=== PATIENT | male | born 1965 | race African-American/Black ===

== ENCOUNTER → 2016-05-15 | Outpatient (CLI) | payer BC, OTHER ==
[2016-05-15 15:38] LABS: Basophils % (A) 0 %; CH 29.7; CHCM 32.3; Eosinophils # (A) 0.2 k/uL (0-0.7); Eosinophils % (A) 3 %; HCT 43.8 % (39.0-53.0); HDW 2.47; HGB 13.9 gm/dL (13.0-17.5); Luc % (Auto) 3; Lymphocytes # (A) 1.7 k/uL (1.0-4.8); Lymphocytes % (A) 25 %; MCH 29.4 pg (25.0-35.0); MCHC 31.8 g/dL (31.0-37.0); MCV 92.6 fL (80.0-100.0); Monocytes # (A) 0.3 k/uL (0-1.0); Monocytes % (A) 5 %; Neutrophils # (A) 4.6 k/uL (1.3-7.7); Neutrophils % (A) 65 %; RBC 4.73 m/uL (4.30-5.90); RDW 13.5 % (11.5-15.5); WBC 7.1 k/uL (3.8-10.6); WBC (Perox) 7.47
[2016-05-15 15:51] LABS: ALT 40 U/L (21-72); AST 25 U/L (17-59); Alkaline Phosphatase 49 U/L (38-126); Anion Gap 9 mmol/L; Blood Urea Nitrogen 12 mg/dL (9-20); Calcium 9.6 mg/dL (8.4-10.2); Carbon Dioxide 25 mmol/L (22-30); Chloride 110 mmol/L (98-107); Cholesterol 186 mg/dL (<200); Glucose 94 mg/dL (74-99); HDL Cholesterol 55 mg/dL (40-60); Non-African American GFR(MDRD) >60 (>60 ml/min/1.73 sqM); Potassium 4.5 mmol/L (3.5-5.1); Sodium 144 mmol/L (137-145); Total Bilirubin 0.4 mg/dL (0.2-1.3); Total Protein 6.9 g/dL (6.3-8.2); Triglycerides 102 mg/dL (<150)
[2016-05-15 20:50] LABS: Hemoglobin A1C 5.7 % (4.2-6.1)
== END | disposition home or self-care (01) ==
LOC: LABWHC1 15:22
PROVIDERS: ATTEND Family Medicine
DX: I10 Essential (primary) hypertension (principal); I63.40 Cerebral infarction due to embolism of unspecified cerebral artery
CPT/HCPCS: 36415; 80053; 80061; 83036; 84439; 84443; 85025

== ENCOUNTER → 2016-05-15 | Outpatient (CLI) | payer BC, OTHER ==
--- NOTE | 2016-05-16 08:15 | MR ---
EXAMINATION TYPE: MR lumbar spine wo con DATE OF EXAM: 05/15/2016 3:17 PM COMPARISON: Prior MRI lumbar spine February 21, 2014 HISTORY: Lumbago per order. Left-sided low back pain for 15 years going down bilateral thighs per pat ient. TECHNIQUE: Multiplanar, multisequence imaging of the lumbar spine is performed without IV contrast. FINDINGS: Sagittal images of the lumbar spine show vertebral body heights and alignment to appear sat isfactory. There is redemonstration of multilevel disc desiccation and disc space narrowing with rela tive sparing of L2-L3 and L5-S1 levels. Most pronounced disc space narrowing is redemonstrated at L1- L2 and L4-L5 levels. Most prominent posterior disc herniations are redemonstrated at these levels on sagittal images but felt stable. The conus medullaris is normal in position and signal ending at mid L1 vertebral body level. The bone marrow signal intensity is overall heterogeneous with some endpla te changes most pronounced anteriorly L1-L2 and L4-L5 levels. There is mild to moderate multilevel an terior spurring redemonstrated. Axial images show the T12-L1 level to remain within normal limits. Axial images at the L1-L2 level redemonstrate mild to moderate broad disc bulge effacing the anterior thecal sac. There is stable mild bilateral anterior inferior neural foraminal narrowing at this leve l identified. Axial images at L2-L3 level show mild facet arthropathy bilaterally otherwise are within normal limit s and stable from prior. Axial images at the L3-L4 level show mild to moderate facet degenerative changes and ligamentum flavu m hypertrophy effacing the posterior lateral thecal sac. There is central disc protrusion effacing th e anterior thecal sac. There is increased signal posteriorly consistent with annular tear. There is m ild bilateral anterior inferior neural foraminal narrowing seen. No significant change from prior stephanie dy is noted. Axial images at the L4-L5 level show mild to moderate facet degenerative changes bilaterally. There i s broad-based left paracentral disc protrusion redemonstrated on axial image 10 effacing the anterior thecal sac. Increased signal posterior likely consistent with annular tear is noted. There is modera te right greater than left neural foraminal narrowing redemonstrated at this level. No significant ch edith from prior study is seen. Axial images at L5-S1 level show mild facet degenerative changes bilaterally. There is broad-based le ft paracentral disc protrusion redemonstrated on axial image 4. Increased signal posteriorly consiste nt with annular tear is redemonstrated. Bilateral neural foramina remain patent. Symmetric prominent iliopsoas muscle bulk remains present. IMPRESSION: Multilevel degenerative changes in the lumbar spine as detailed above, findings are felt most pronounced at L4-L5 level, no significant progression from prior MRI is felt present.
== END | disposition home or self-care (01) ==
LOC: RADMRIMAIN 14:48
PROVIDERS: ATTEND Psychiatry & Neurology Neurology
DX: M47.26 Other spondylosis with radiculopathy, lumbar region (principal)
CPT/HCPCS: 72148

== ENCOUNTER → 2016-07-23 | Outpatient (CLI) | payer OTHER ==
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
== END | disposition home or self-care (01) ==
LOC: SLEEP 13:26
PROVIDERS: ATTEND Internal Medicine Critical Care Medicine
DX: G47.10 Hypersomnia, unspecified (principal); I10 Essential (primary) hypertension; M54.9 Dorsalgia, unspecified; G89.29 Other chronic pain; Z87.891 Personal history of nicotine dependence; Z86.73 Personal history of transient ischemic attack (TIA), and cerebral infarction without residual deficits
CPT/HCPCS: 99203; 99211

== ENCOUNTER → 2016-10-08 | Outpatient (CLI) | payer OTHER ==
--- NOTE | 2016-10-08 21:39 | PN ---
This is a 51-year-old -[place] male patient diagnosed having severe JADA with an AHI of 73.5. He also is known to have CVA, bronchial asthma, chronic back pain and hypertension. He had a successful CPAP titration, during which he was titrated to a CPAP pressure of 12 cm of water. The patient claims that he has been using his CPAP every night; however, his compliance data do not reflect his history. Based on the compliance data, the patient has achieved more than 4 hours on his CPAP only 9 out of 30 days. His leak is quite extensive at 36 L/minute and the patient's AHI while on treatment is down to 35. In fact, he seems to have used the CPAP only 50% of the time. His CPAP use is 15 out of 30 days. Despite this limited compliancy that is observed on this CPAP machine, the patient reports improvement in his symptoms. He tells me that he is seeing benefit from the treatment, and he is waking up much more alert and awake during the day and seems to be more committed for long-term treatment. BP is 140/84, pulse 59, respiration 16, temperature 98.2. Weight is 221. Edgeley score is 5. Saturation 97% on room air. GENERAL APPEARANCE: Calm, comfortable. HEENT: Negative for JVD. No goiter or neck mass. LUNGS: Diminished; otherwise clear. Heart sounds are regular rate and rhythm. Normal S1, S2. ABDOMEN: Soft, nontender. No organomegaly. EXTREMITIES: No edema. No cyanosis or clubbing. IMPRESSION: 1. Severe obstructive sleep apnea with an AHI of 74, currently on CPAP therapy with suboptimal compliance. 2. Chronic hypersomnia, improving. 3. Bronchial asthma. 4. Chronic back pain. 5. Hypertension. PLAN: 1. Will change the setting to an automatic mode with a minimum pressure of 5, maximum pressure of 15. This change was done, knowing that the patient was having residual obstructive sleep apnea even while on treatment. 2. Keep the same mask. 3. Encourage/demand more compliance on the CPAP machine. 4. See me back in 4 to 6 weeks' time for another compliancy check.
== END | disposition home or self-care (01) ==
LOC: SLEEP 15:36
PROVIDERS: ATTEND Internal Medicine Critical Care Medicine
DX: G47.33 Obstructive sleep apnea (adult) (pediatric) (principal); G47.13 Recurrent hypersomnia

== ENCOUNTER → 2017-01-21 | Outpatient (CLI) | payer OTHER ==
--- NOTE | 2017-01-21 17:07 | MR ---
EXAMINATION TYPE: MR lumbar spine wo con DATE OF EXAM: 01/21/2017 COMPARISON: 05/15/2016 HISTORY: Low back pain TECHNIQUE: Multiplanar, multisequence images of the lumbar spine were acquired. Lumbar vertebral body heights maintain alignment and height. Bone marrow signal is unremarkable other than degenerative endplate change. Multilevel intervertebral disc desiccation and interspace narrowi ng is again seen. Conus medullaris terminates at L1 and is unremarkable. Anterior osteophytes are aga in noted. L1-L2: There is a small broad-based disc bulge and central annular tear creating mild bilateral neura l foraminal narrowing. No spinal canal stenosis. L2-L3: Normal disc appearance without desiccation. No herniation, protrusion or disc bulging. No ca nal stenosis is present. Foramina are patent bilaterally. L3-L4: There is a small broad-based disc bulge creating mild bilateral neural foraminal narrowing. Henley perimposed on this broad-based disc bulge that remains a small central disc protrusion effacing the a nterior thecal sac. No spinal canal stenosis. Mild facet arthropathy is noted. L4-L5: There is a bilobed broad-based disc bulge creating mild left neural foraminal narrowing and mi [id number] right neural foraminal narrowing with annular tear. Superimposed on this there remains a small left paracentral disc protrusion effacing the ventral thecal sac. Mild facet arthropathy is noted. L5-S1: There is persistent left paracentral disc protrusion with annular tear. No neural foraminal na rrowing or spinal canal stenosis. Moderate facet arthropathy is present, right greater than left. IMPRESSION: Similar exam in comparison to the prior of 05/15/2016 with small disc herniations at L3-4, L4-L5 and L5 -S1 without progression. Multilevel degenerative disc disease also resulting in variable degrees of n eural foraminal narrowing as described above.
== END | disposition home or self-care (01) ==
LOC: RADMRIMAIN 15:11
PROVIDERS: ATTEND Psychiatry & Neurology Neurology
DX: M51.27 Other intervertebral disc displacement, lumbosacral region (principal); M51.36 Other intervertebral disc degeneration, lumbar region; M99.73 Connective tissue and disc stenosis of intervertebral foramina of lumbar region
CPT/HCPCS: 72148

== ENCOUNTER → 2017-05-19 | Outpatient (CLI) | payer OTHER ==
--- NOTE | 2017-05-19 19:19 | MR ---
EXAMINATION TYPE: MR shoulder LT wo con DATE OF EXAM: 05/19/2017 COMPARISON: NONE HISTORY: Pain Left Shoulder since 2016, Limited ROM TECHNIQUE: Multiplanar, multisequence imaging of the left shoulder is performed without contrast. FINDINGS: Rotator Cuff: There is a partial thickness bursal surface tear of the insertional fibers of the anterior and mid aceves praspinatus measuring 1.7 x 0.9 cm superimposed upon moderate supraspinatus tendinopathy. Mild infraspinatus tendinopathy is seen as increased signal of the myotendinous junction and insertio nal fibers without distinct tear there is bursal surface fraying. The teres minor and subscapularis a re of normal muscle signal and volume. Acromioclavicular Joint: Moderate acromioclavicular arthropathy is seen as capsular hypertrophy, join t space narrowing and subchondral cysts. There is mild downsloping of the acromion mildly impinging o n the supraspinatus muscle. Glenohumeral Joint: Mild joint space narrowing is seen. Small anterior osteophyte is noted of the hum eral head. Tiny subchondral cysts are present at the posterior greater tuberosity. Bone marrow signal is unremarkable. Labrum: The labrum appears grossly intact given limitation of non-arthrogram study. Degeneration of t he anterior inferior and anterior superior labrum is noted. Biceps Tendon: The long head of the biceps is in normal position within the bicipital groove. There i s attenuation of the intra-articular portion of the biceps near its insertion on the bicipital anchor . Bone marrow signal: No focal abnormal marrow signal is appreciated. IMPRESSION: 1. Partial-thickness bursal surface tear of the insertional anterior and mid fibers of the supraspina tus measuring 1.7 x 0.9 cm with bursal surface fraying. This is superimposed upon moderate supraspina tus tendinopathy. 2. Mild infraspinatus tendinopathy and biceps tendinopathy in its intra-articular portion. 3. Moderate acromioclavicular arthropathy and downsloping of the acromion mildly impinging on the sup raspinatus myotendinous junction. 4. Labral degeneration of the anterior inferior and anterior superior labrum. 5. Mild glenohumeral arthropathy.
== END | disposition home or self-care (01) ==
LOC: RADMRIMAIN 17:45
PROVIDERS: ATTEND Psychiatry & Neurology Neurology
DX: M75.102 Unspecified rotator cuff tear or rupture of left shoulder, not specified as traumatic (principal); M75.42 Impingement syndrome of left shoulder; M75.22 Bicipital tendinitis, left shoulder; M75.82 Other shoulder lesions, left shoulder; M12.812 Other specific arthropathies, not elsewhere classified, left shoulder

== ENCOUNTER → 2018-01-20 | Outpatient (CLI) | payer OTHER ==
--- NOTE | 2018-01-21 08:03 | MR ---
EXAMINATION TYPE: MR lumbar spine wo con DATE OF EXAM: 01/20/2018 COMPARISON: 01/21/2017 HISTORY: 52-year-old male Back pain for years. TECHNIQUE: Multiplanar, multisequence images of the lumbar spine were acquired. FINDINGS: Vertebral body heights are preserved. Mild heterogeneity of marrow signal without suspicious bone mar row placement. There is some Modic type II fatty endplate change anteriorly at L1-L2 and L4-L5. Trace grade 1 retrolisthesis at L1-L2, trace grade 1 anterolisthesis at L3-L4, and trace grade 1 retr olisthesis at L4-L5. These changes are slightly more situated from prior. Redemonstrated moderate multilevel degenerative disc disease with a degenerated, desiccated, and vari ably narrowed discs with diffuse bulging. Some interval healing of the posterior annular fissure at L 4-L5 but with persistent posterior annular fissure at L5-S1. Facet arthropathy throughout the lumbar spine. At T12-L1, no spinal canal or neural foraminal stenosis. L1-L2, trace retrolisthesis with diffuse disc bulge impresses on the ventral thecal sac but does not cause significant spinal canal stenosis. Mild left and minimal inferior right neuroforaminal narrowin g is unchanged. At L2-L3, facet arthropathy without significant canal or foraminal stenosis. At L3-L4, bulging disc with facet arthropathy and ligamentum flavum thickening and trace grade 1 ante rolisthesis. Changes mildly narrow the spinal canal similar to prior exam with minimal bilateral infe rior neural foraminal narrowing which appears slightly increased. At L4-L5, facet arthropathy with diffuse disc bulge and trace grade 1 retrolisthesis. There is ventra l impression onto the thecal sac without significant spinal canal stenosis. Disc material closely helen roaches and may abut the traversing left L5 nerve root. There is moderate bilateral neural foraminal stenosis which may be slightly progressed from prior. At L5-S1, posterior disc bulge with facet arthropathy. No significant spinal canal or neural foramina l stenosis. T2 bright lesion measuring 2.0 cm in the mid right kidney was present previously, likely a cyst. No prevertebral or paravertebral soft tissue abnormality otherwise seen. IMPRESSION: 1. Moderate multilevel degenerative disc disease. Additional facet arthropathy throughout. 2. Trace spondylolisthesis at L1-L2, L3-L4, L4-L5 are minimally more accentuated from prior. 3. Some interval healing change of the previous L4-L5 posterior annular fissure. 4. Bulging disks impress onto the ventral thecal sac at various levels but causes only mild overall s abeba canal narrowing at L3-L4. 5. Variable mild and moderate neural foraminal stenoses as outlined above, the moderate bilateral sudhakar rowing at L4-L5 may be minimally progressed from prior. 6. Disc material at L4-L5 closely approaches and may abut the traversing left L5 nerve root.
== END | disposition home or self-care (01) ==
LOC: RADMRIMAIN 15:57
PROVIDERS: ATTEND Psychiatry & Neurology Neurology
DX: M48.061 Spinal stenosis, lumbar region without neurogenic claudication (principal); M99.73 Connective tissue and disc stenosis of intervertebral foramina of lumbar region; M43.16 Spondylolisthesis, lumbar region; M51.36 Other intervertebral disc degeneration, lumbar region; M46.96 Unspecified inflammatory spondylopathy, lumbar region
CPT/HCPCS: 72148

== ENCOUNTER 2019-08-23 06:36 | Inpatient (IN) | payer MEDICARE, OTHER ==
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
[2019-08-23] MEDS ORDERED: MORPHINE SULFATE 4 MG/ML SYRINGE IV PRN (07:04)
[2019-08-23] MEDS ORDERED: NITROGLYCERIN SL TABS 0.4 MG TAB SUBLINGUAL PRN (07:04)
[2019-08-23] MEDS ORDERED: HYDROcodone/APAP 7.5-325MG 1 EACH TAB PO PRN (07:48)
[2019-08-23] MEDS ORDERED: SODIUM CHLORIDE 0.9% 1,000 ML IV ONE (07:48)
[2019-08-23] MEDS ORDERED: SODIUM CHLORIDE 0.9% 1,000 ML IV SCH (08:00)
[2019-08-23] MEDS ORDERED: NON FORMULARY DRUG (Aspirin Ec 81 MG) PO SCH (09:00)
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
[2019-08-23] MEDS ORDERED: ASPIRIN 81 MG PO STA (12:35)
[2019-08-23] MEDS: METOPROLOL TARTRATE 25 MG TAB PO SCH ×2 (12:41→20:47)
[2019-08-23] MEDS: MUPIROCIN 2% OINT 22 GM TUBE TOPICAL SCH ×3 (12:41→20:48)
[2019-08-23] MEDS: amLODIPine 10 MG TAB PO SCH (12:41)
--- NOTE | 2019-08-23 12:43 | ECHOF ---
Referral Reason:chest pain MEASUREMENTS -------- HEIGHT: 182.9 cm WEIGHT: 104.3 kg BP: 147/96 RVIDd: 3.5 cm (< 3.3) IVSd: 1.3 cm (0.6 - 1.1) LVIDd: 5.2 cm (3.9 - 5.3) LVPWd: 1.7 cm (0.6 - 1.1) IVSs: 1.4 cm LVIDs: 4.1 cm LVPWs: 1.9 cm LAESV Index (A-L): 46.47 ml/m Ao Diam: 3.7 cm (2.0 - 3.7) AV Cusp: 1.9 cm (1.5 - 2.6) MV EXCURSION: 17.007 mm (> 18.000) MV EF SLOPE: 98 mm/s (70 - 150) EPSS: 1.8 cm MV E Randall: 0.76 m/s MV DecT: 174 ms MV A Randall: 1.06 m/s MV E/A Ratio: 0.72 AR PHT: 475 ms RAP: 5.00 mmHg RVSP: 42.89 mmHg FINDINGS -------- Sinus rhythm. This was a technically difficult study with suboptimal apical views. The left ventricular size is normal. There is moderate concentric left ventricular hypertrophy. O verall left ventricular systolic function is mild-moderately impaired with, an EF between 40 - 45 %. Mitral Doppler inflow pattern suggests diastolic filling abnormality 16.29. Increased LAP Grade 2 Diastolic Dysfunction. Mid lateral LV wall motion is hypokinetic. Apical anterior LV wall motio n is hypokinetic. Apical lateral LV wall motion is hypokinetic. The right ventricle is mildly enlarged. LA is severely dilated >40 ml/m2 The right atrium was not well visualized. Lumason used There is mild aortic valve sclerosis. There is gwql-qr-ixzjzggn aortic regurgitation. There is no evidence of aortic stenosis. Mild mitral annular calcification present. Vjex-jc-tryxejmu mitral regurgitation is present. Ezee-jj-lxugizwv tricuspid regurgitation present. There is mild pulmonary hypertension. The right ventricular systolic pressure, as measured by Doppler, is 42.89mmHg. There is no pulmonic regurgitation present. The aortic root size is normal. IVC Not well visulized. There is no pericardial effusion. CONCLUSIONS -------- 1. This was a technically difficult study with suboptimal apical views. 2. The left ventricular size is normal. 3. There is moderate concentric left ventricular hypertrophy. 4. Overall left ventricular systolic function is mild-moderately impaired with, an EF between 40 - 45 %. 5. Mitral Doppler inflow pattern suggest diastolic filling abnormality 16.29. 6. Increased LAP Grade 2 Diastolic Dysfunction. 7. Mid lateral LV wall motion is hypokinetic. 8. Apical anterior LV wall motion is hypokinetic. 9. Apical lateral LV wall motion is hypokinetic. 10. The right ventricle is mildly enlarged. 11. LA is severely dilated >40 ml/m2 12. Lumason used 13. There is mild aortic valve sclerosis. 14. There is ppkb-uz-bcaaaaav aortic regurgitation. 15. Mild mitral annular calcification present. 16. Txlz-sr-bjspqhjo mitral regurgitation is present. 17. Tcsy-ti-fksjdttg tricuspid regurgitation present. 18. There is mild pulmonary hypertension. MARKET RESEARCHER: Zayda Richardson RDCS
[2019-08-23] MEDS: HYDROcodone/APAP 10-325MG 1 EACH TAB PO PRN ×2 (12:56→20:47)
[2019-08-23] MEDS: HEPARIN SODIUM,PORCINE 5,000 UNIT/ML 1 ML VIAL SQ SCH ×3 (16:07→23:02)
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
[2019-08-23] MEDS: hydrALAZINE HCL 25 MG TAB PO PRN (23:01)
[2019-08-24 03:06] LABS: Cholesterol 187 mg/dL (<200); HDL Cholesterol 42 mg/dL (40-60); LDL Cholesterol,Calculated 131 mg/dL (0-99); Triglycerides 71 mg/dL (<150)
[2019-08-24] MEDS: hydrALAZINE HCL 25 MG TAB PO PRN (05:00)
[2019-08-24] MEDS: HYDROcodone/APAP 10-325MG 1 EACH TAB PO PRN ×2 (05:00→22:34)
[2019-08-24] MEDS ORDERED: HEPARIN SODIUM,PORCINE 5,000 UNIT/ML 1 ML VIAL IV ONE (08:30)
[2019-08-24] MEDS ORDERED: HEPARIN SOD,PORK IN 0.45% NACL 25,000 UNIT in 0.45% NACL 1 250ML.BAG IV SCH (08:30)
[2019-08-24] MEDS ORDERED: HEPARIN SODIUM,PORCINE 5,000 UNIT/ML 1 ML VIAL IV PRN (08:30)
[2019-08-24 08:53] LABS: Basophils % (A) 0 %; Eosinophils # (A) 0.2 k/uL (0-0.7); Eosinophils % (A) 2 %; HCT 49.2 % (39.0-53.0); HGB 15.7 gm/dL (13.0-17.5); Lymphocytes # (A) 2.7 k/uL (1.0-4.8); Lymphocytes % (A) 30 %; MCHC 31.8 g/dL (31.0-37.0); MCV 91.1 fL (80.0-100.0); Mean Platelet Volume 7.7; Monocytes # (A) 0.6 k/uL (0-1.0); Monocytes % (A) 6 %; Neutrophils # (A) 5.2 k/uL (1.3-7.7); Neutrophils % (A) 59 %; Platelet Count 245 k/uL (150-450); RBC 5.41 m/uL (4.30-5.90); RDW 13.1 % (11.5-15.5); WBC 8.9 k/uL (3.8-10.6)
[2019-08-24] MEDS ORDERED: ASPIRIN 325 MG TAB PO STA (08:57)
[2019-08-24] MEDS ORDERED: ALPRAZolam 0.5 MG TAB PO PRN (08:57)
[2019-08-24] MEDS ORDERED: ATORVASTATIN 80 MG TAB PO STA (08:57)
[2019-08-24] MEDS ORDERED: ALPRAZolam 0.25 MG TAB PO PRN (08:57)
[2019-08-24] MEDS ORDERED: NITROGLYCERIN SL TABS 0.4 MG TAB SUBLINGUAL PRN (08:57)
[2019-08-24] MEDS ORDERED: SODIUM CHLORIDE 0.9% 1,000 ML in EMPTY BAG 1 BAG IV ONE (08:57)
[2019-08-24] MEDS ORDERED: ASPIRIN 325 MG TAB PO SCH (09:00)
[2019-08-24 09:15] LABS: Partial Thromboplastin Time 26.4 sec (22.0-30.0); Prothrombin Time 10.2 sec (9.0-12.0)
[2019-08-24] MEDS: amLODIPine 10 MG TAB PO SCH (09:23)
[2019-08-24] MEDS: ASPIRIN 81 MG PO SCH (09:39)
[2019-08-24] MEDS: MUPIROCIN 2% OINT 22 GM TUBE TOPICAL SCH ×3 (09:39→19:45)
[2019-08-24] MEDS: ATORVASTATIN 40 MG TAB PO SCH (09:39)
[2019-08-24] MEDS: METOPROLOL TARTRATE 25 MG TAB PO SCH ×2 (09:43→19:44)
[2019-08-24] MEDS ORDERED: LIDOCAINE 1% INJ 10MG/ML (20 ML MDV) ONE (11:46)
[2019-08-24] MEDS ORDERED: VERAPAMIL 2.5 MG/ML 2 ML AMP ONE (11:46)
[2019-08-24] MEDS ORDERED: fentaNYL (PF) 50 MCG/ML 2 ML AMP ONE (11:51)
[2019-08-24] MEDS ORDERED: LIDOCAINE 1% INJ 10MG/ML (20 ML MDV) SQ ONE (11:55)
[2019-08-24] MEDS ORDERED: MIDAZOLAM 2 MG/2 ML VIAL IV ONE (11:56)
[2019-08-24] MEDS ORDERED: fentaNYL (PF) 50 MCG/ML 2 ML AMP IV ONE (11:56)
[2019-08-24] MEDS ORDERED: IV FLUID CONTINUATION 600 ML IV ONE (11:56)
[2019-08-24] MEDS: VERAPAMIL SYRINGE (5 MG/10 ML) INTRAARTER ONE ×2 (11:57→12:17)
[2019-08-24] MEDS ORDERED: IOPAMIDOL-370 50ML BTL INJ ONE (12:16)
[2019-08-24] MEDS ORDERED: IOPAMIDOL-370 100ML BTL INJ ONE (12:17)
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
[2019-08-24] MEDS ORDERED: RX INFO: IV CONTRAST WAS GIVEN 1 EACH MISC MISCELLANE PRN (12:27)
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
[2019-08-24] MEDS: LOSARTAN 50 MG TAB PO SCH (14:13)
[2019-08-24] MEDS: SODIUM CHLORIDE 0.9% 1,000 ML IV SCH ×2 (15:34→19:46)
[2019-08-24] MEDS: HEPARIN SODIUM,PORCINE 5,000 UNIT/ML 1 ML VIAL SQ SCH (19:38)
[2019-08-25 06:01] LABS: Basophils % (A) 0 %; Eosinophils # (A) 0.1 k/uL (0-0.7); Eosinophils % (A) 2 %; HCT 46.7 % (39.0-53.0); HGB 15.4 gm/dL (13.0-17.5); Lymphocytes # (A) 2.9 k/uL (1.0-4.8); Lymphocytes % (A) 30 %; MCH 30.1 pg (25.0-35.0); MCV 91.4 fL (80.0-100.0); Mean Platelet Volume 8.3; Monocytes # (A) 0.7 k/uL (0-1.0); Monocytes % (A) 8 %; Neutrophils # (A) 5.6 k/uL (1.3-7.7); Neutrophils % (A) 59 %; Platelet Count 223 k/uL (150-450); RBC 5.11 m/uL (4.30-5.90); RDW 13.1 % (11.5-15.5); WBC 9.5 k/uL (3.8-10.6)
[2019-08-25 06:23] LABS: African American GFR (CKD) >90 (>60 ml/min/1.73 sqM); Anion Gap 6 mmol/L; Blood Urea Nitrogen 17 mg/dL (9-20); Calcium 9.2 mg/dL (8.4-10.2); Carbon Dioxide 23 mmol/L (22-30); Chloride 108 mmol/L (98-107); Glucose 93 mg/dL (74-99); Non-African American GFR(CKD) 78 (>60 ml/min/1.73 sqM); Potassium 4.2 mmol/L (3.5-5.1); Sodium 137 mmol/L (137-145)
[2019-08-25] MEDS ORDERED: amLODIPine 5 MG TAB PO SCH (09:00)
[2019-08-25] MEDS: LOSARTAN 50 MG TAB PO SCH (09:05)
[2019-08-25] MEDS: ATORVASTATIN 40 MG TAB PO SCH (09:05)
[2019-08-25] MEDS: METOPROLOL TARTRATE 25 MG TAB PO SCH (09:05)
[2019-08-25] MEDS: ASPIRIN 81 MG PO SCH (09:05)
[2019-08-25] MEDS: MUPIROCIN 2% OINT 22 GM TUBE TOPICAL SCH (09:10)
[2019-08-25 09:11] VITALS: BP 128/79; PULSE 98; RESP 18; TEMP 98.1
[2019-08-25] MEDS ORDERED: CLOPIDOGREL 75 MG TAB PO SCH (10:15)
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
== END 2019-08-25 10:37 | disposition home or self-care (01) | DRG 287 ==
LOC: EC 06:36 → 3SCARD 07:09
PROVIDERS: ADMIT Internal Medicine Geriatric Medicine; ATTEND Internal Medicine Geriatric Medicine
PROC: B2111ZZ Fluoroscopy of Multiple Coronary Arteries using Low Osmolar Contrast (ICD-10-PCS; principal; 2019-08-24 08:20)
PROC: 4A023N7 Measurement of Cardiac Sampling and Pressure, Left Heart, Percutaneous Approach (ICD-10-PCS; principal; 2019-08-24 08:20)
DX: I51.81 Takotsubo syndrome (principal); R09.01 Asphyxia; E78.5 Hyperlipidemia, unspecified; F17.200 Nicotine dependence, unspecified, uncomplicated; G89.4 Chronic pain syndrome; I08.3 Combined rheumatic disorders of mitral, aortic and tricuspid valves; I10 Essential (primary) hypertension; I27.20 Pulmonary hypertension, unspecified; Y09 Assault by unspecified means; Z79.82 Long term (current) use of aspirin; Z79.899 Other long term (current) drug therapy; Z82.0 Family history of epilepsy and other diseases of the nervous system; Z86.73 Personal history of transient ischemic attack (TIA), and cerebral infarction without residual deficits; Z98.890 Other specified postprocedural states
CPT/HCPCS: 36415; 80048; 80061; 82550; 84484; 85025; 85610; 85730; 87635; 93005; 93306; 93458; 99285

== ENCOUNTER 2021-01-23 01:47 | Emergency (ER) | payer MEDICARE, OTHER ==
[2021-01-23 02:11] VITALS: PULSE 94; RESP 16; TEMP 98.1
[2021-01-23] MEDS ORDERED: FAMOTIDINE 20 MG/2 ML VIAL IV STA (02:25)
[2021-01-23] MEDS ORDERED: methylPREDNISolone SOD SUCCI 125 MG/2 ML VIAL IV STA (02:25)
[2021-01-23] MEDS ORDERED: diphenhydrAMINE 50 MG/ML 1 ML VIAL IVP STA (02:25)
--- NOTE | 2021-01-23 02:48 | ED ---
General Adult HPI - General Chief complaint: ENT Stated complaint: Throat Swelling Time Seen by Provider: 01/23/21 02:12 Source: patient Mode of arrival: ambulatory Limitations: no limitations - History of Present Illness Initial comments: 55 year-old male patient presents to the emergency department for evaluation of neck swelling. States it started tonight after taking a dose of metoprolol. States he was on it previously for high blood pressure but has not taken it in a while. States he was having headaches and found his BP to be high so took a dose tonight. States he started feeling like his neck was tight and then it became swollen. States he does have some "discomfort" in his throat. Denies difficulty breathing or swallowing. Denies any rash or itching. Denies any lip or tongue swelling. Denies fever or chills. Denies any exposure to new substances. - Related Data Home Medications Medication Instructions Recorded Confirmed HYDROcodone/APAP 10-325MG [[place] 10 - 325 mg PO TID 08/23/19 08/23/19 10-325] Previous Rx's Medication Instructions Recorded Aspirin EC [Ecotrin Low Dose] 81 mg PO DAILY #30 tablet. 01/10/16 Atorvastatin [Lipitor] 40 mg PO DAILY #30 tab 08/25/19 Losartan [Cozaar] 100 mg PO DAILY #60 tab 08/25/19 Metoprolol Tartrate [Lopressor] 25 mg PO BID #60 tab 08/25/19 amLODIPine [Norvasc] 5 mg PO DAILY #30 tab 08/25/19 Allergies Allergy/AdvReac Type Severity Reaction Status Date / Time No Known Allergies Allergy Verified 01/23/21 02:04 Review of Systems ROS Statement: Those systems with pertinent positive or pertinent negative responses have been documented in the HPI. ROS Other: All systems not noted in ROS Statement are negative. Past Medical History Past Medical History: CVA/TIA, Hyperlipidemia, Hypertension Additional Past Medical History / Comment(s): chronic back pain History of Any Multi-Drug Resistant Organisms: None Reported Past Surgical History: Orthopedic Surgery Additional Past Surgical History / Comment(s): arthroscopy titanium gisela right ankle. bilateral knees Past Psychological History: No Psychological Hx Reported Smoking Status: Light tobacco smoker Past Alcohol Use History: Occasional Past Drug Use History: Marijuana - Past Family History Brother(s) History Unknown: Yes Additional Family Medical History / Comment(s): Patient has a total of 9 siblings one brother has from a motor vehicle accident. Father History Unknown: Yes Additional Family Medical History / Comment(s): Father in his 70s from Alzheimer's dementia. Mother Additional Family Medical History / Comment(s): Mother at age 47 from heart complications. General Exam Limitations: no limitations General appearance: alert, in no apparent distress, other (This is a well- developed, well-nourished adult male patient in no acute distress. Vital signs upon presentation are temperature 98.1F, pulse 94, respirations 16, blood pressure 164/79, pulse ox 99% on room air.) ENT exam: Present: normal exam, normal oropharynx, mucous membranes moist Neck exam: Present: normal inspection. Absent: tenderness, meningismus, lymphadenopathy Respiratory exam: Present: normal lung sounds bilaterally. Absent: respiratory distress, wheezes, rales, rhonchi, stridor Cardiovascular Exam: Present: regular rate, normal rhythm, normal heart sounds. Absent: systolic murmur, diastolic murmur, rubs, gallop, clicks GI/Abdominal exam: Present: soft, normal bowel sounds. Absent: distended, tenderness, guarding, rebound, rigid Neurological exam: Present: alert, oriented X3, CN II-XII intact Psychiatric exam: Present: normal affect, normal mood Skin exam: Present: warm, dry, intact, normal color. Absent: rash Course Vital Signs 01/23/21 01/23/21 02:06 03:18 Temperature 98.1 F Pulse Rate 94 Respiratory 16 Rate Blood Pressure 164/79 146/97 O2 Sat by Pulse 99 Oximetry Medical Decision Making - Medical Decision Making 55-year-old male patient presented to the emergency department today for evaluation of neck swelling. Physical examination was relatively unremarkable, no discernible swelling is appreciated however patient states it is larger than usual. He is speaking without difficulty. Denied any throat swelling or tongue swelling. Denies difficulty swallowing or breathing. He was given IV steroids, Benadryl, Pepcid. He was monitored. Upon reevaluation states his symptoms are not any worse. He denies any new symptoms. Vital signs are unremarkable. He'll be discharged to follow-up with his primary care physician for recheck in 1-2 days. He is advised against taking the metoprolol. Return parameters were discussed in detail. He verbalizes understanding and agrees with this plan. Case discussed with my attending Dr. Mcduffie. Disposition Clinical Impression: Neck swelling Disposition: HOME SELF-CARE Condition: Good Instructions (If sedation given, give patient instructions): Edema (ED) Additional Instructions: Follow up with her primary care physician for recheck as an as possible. Return to the emergency department for any new, worsening, or concerning symptoms. Is patient prescribed a controlled substance at d/c from ED?: No Referrals: Tano Potter MD [Primary Care Provider] - 1-2 days Time of Disposition: 03:54
[2021-01-23] MEDS ORDERED: ONDANSETRON 4 MG/2 ML VIAL IVP STA (02:58)
[2021-01-23 03:18] VITALS: BP 146/97
== END 2021-01-23 04:33 | disposition home or self-care (01) ==
LOC: EC 01:47
DX: R22.1 Localized swelling, mass and lump, neck (principal); R51.9 Headache, unspecified; I10 Essential (primary) hypertension; E78.5 Hyperlipidemia, unspecified; Z79.82 Long term (current) use of aspirin; Z86.73 Personal history of transient ischemic attack (TIA), and cerebral infarction without residual deficits; F17.200 Nicotine dependence, unspecified, uncomplicated; F12.90 Cannabis use, unspecified, uncomplicated
CPT/HCPCS: 99283; 96374; 96375 ×3; J1200; J2930; J2405

== ENCOUNTER → 2022-12-04 | Outpatient (CLI) | payer MEDICARE ==
[2022-12-05 04:28] LABS: Blood Urea Nitrogen 13.3 mg/dL (9.0-27.0); Calcium 9.6 mg/dL (8.7-10.3); Chloride 104 mmol/L (96-109); Glucose 118 mg/dL (70-110); Potassium 4.2 mmol/L (3.5-5.5); Sodium 142 mmol/L (135-145)
== END | disposition home or self-care (01) ==
LOC: LABWHC1 15:10
PROVIDERS: ATTEND Nurse Practitioner
DX: I10 Essential (primary) hypertension (principal); I51.9 Heart disease, unspecified
CPT/HCPCS: 36415; 80048; 84443

== ENCOUNTER 2024-03-17 17:32 | Emergency (ER) | payer MEDICARE, OTHER ==
--- NOTE | 2024-03-17 18:03 | ED ---
General Adult HPI - General Source: patient, RN notes reviewed <Karime Burns - Last Filed: 03/17/24 18:02> - General Source: patient, RN notes reviewed, old records reviewed <Daniel Huggins - Last Filed: 03/17/24 22:51> - General Stated complaint: Back pain, nausea Time Seen by Provider: 03/17/24 17:49 - History of Present Illness Initial comments: Quick [id number] male presented to the emergency department chief complaint of right flank pain that has been intermittent over the past 3 days. Patient denies recent injuries to the back. Denies radiation of pain. Denies urinary symptoms. history of kidney stones. (Karime Burns) Patient is a 58-year-old male presents emergency department complaining of back pain. States it is located just to the right of midline of his mid back. St ates it is near the side of his kidney. Has a history of kidney stones and states it somewhat felt like this but is also different. Pain is worse with movement. Pain is not worse with palpation. Patient denies acute back injuries. Denies any radiation of the pain. Denies hematuria or dysuria. Denies nausea or vomiting. Denies abdominal pain. Denies chest pain. States pain is worse with twisting of his torso and with movement. No recent has not been lifting. Presents for further evaluation at this time. Patient originally seen as a quick note.Patient denies any urinary bowel incontinence or retention, denies lower extremity paralysis, denies saddle paresthesias. (Daniel Huggins) - Related Data Home Medications Medication Instructions Recorded Confirmed HYDROcodone/APAP 10-325MG [[place] 10 - 325 mg PO TID 08/23/19 08/23/19 10-325] Previous Rx's Medication Instructions Recorded Aspirin EC [Ecotrin Low Dose] 81 mg PO DAILY #30 tablet. 01/10/16 Atorvastatin [Lipitor] 40 mg PO DAILY #30 tab 08/25/19 Losartan [Cozaar] 100 mg PO DAILY #60 tab 08/25/19 Metoprolol Tartrate [Lopressor] 25 mg PO BID #60 tab 08/25/19 amLODIPine [Norvasc] 5 mg PO DAILY #30 tab 08/25/19 Lidocaine 5% Patch [Lidoderm 5% 1 patch TOPICAL DAILY PRN 14 Days 03/17/24 Patch] #14 patch Allergies Allergy/AdvReac Type Severity Reaction Status Date / Time No Known Allergies Allergy Verified 03/17/24 18:06 Review of Systems ROS Other: All systems not noted in ROS Statement are negative. <Karime Burns - Last Filed: 03/17/24 18:02> ROS Other: All systems not noted in ROS Statement are negative. <Daniel Huggins - Last Filed: 03/17/24 22:51> ROS Statement: Those systems with pertinent positive or pertinent negative responses have been documented in the HPI. Review of Systems: CONST: Denies fever EYES: Denies blurry vision ENT: Denies nasal congestion C/V: Denies Chest pain RESP: Denies shortness of breath GI: Denies abdominal pain : Denies dysuria SKIN: Denies rash. MSK: Endorses back pain NEURO: Denies headache (Daniel Huggins) Past Medical History Past Medical History: CVA/TIA, Hyperlipidemia, Hypertension Additional Past Medical History / Comment(s): chronic back pain History of Any Multi-Drug Resistant Organisms: None Reported Past Surgical History: Orthopedic Surgery Additional Past Surgical History / Comment(s): arthroscopy titanium gisela right ankle. bilateral knees Past Psychological History: No Psychological Hx Reported Smoking Status: Light tobacco smoker Past Alcohol Use History: Occasional Past Drug Use History: Marijuana - Past Family History Brother(s) History Unknown: Yes Additional Family Medical History / Comment(s): Patient has a total of 9 siblings one brother has from a motor vehicle accident. Father History Unknown: Yes Additional Family Medical History / Comment(s): Father in his 70s from Alzheimer's dementia. Mother Additional Family Medical History / Comment(s): Mother at age 47 from heart complications. <Karime Burns - Last Filed: 03/17/24 18:02> General Exam <Karime Burns - Last Filed: 03/17/24 18:02> <Daniel Huggins - Last Filed: 03/17/24 22:51> - General Exam Comments Initial Comments: Visual Physical Exam Vital signs reviewed General: Well-appearing, nontoxic, no acute distress. Head: Normocephalic, atraumatic Eyes: PERRLA, EOMI ENT: Airway patent Chest: Nonlabored breathing Skin: No visual rash, normal skin tone Neuro: Alert and oriented 3 Musculoskeletal: No gross abnormalities (Karime Burns) General: Appears in no acute distress. HEAD: Normal with no signs of head trauma. EYES: PERRLA, EOMI, conjunctiva normal, no discharge. ENT: Hearing grossly intact, normal oropharynx. RESPIRATORY: Clear breath sounds bilaterally. No wheezes, rales, or rhonchi. C/V: Regular rate and rhythm. S1 and S2 auscultated, no edema, peripheral pulses 2+ and intact throughout ABD: Abd is soft, nontender, nondistended EXT: Normal range of motion, no obvious deformity. Tenderness to palpation of the upper lumbar spine in the lateral paraspinal muscles. Very minimal tenderness to palpation, mostly elicited on range of motion of the torso. SKIN: No rashes or lesions observed on exposed skin. NEURO: Alert and oriented x 4. (Daniel Huggins) Course Vital Signs 03/17/24 03/17/24 18:06 20:40 Temperature 98.1 F Pulse Rate 88 78 Respiratory 18 18 Rate Blood Pressure 112/79 134/93 O2 Sat by Pulse 99 100 Oximetry Medical Decision Making <Karime Burns - Last Filed: 03/17/24 18:02> - Lab Data Result diagrams: 03/17/24 18:28 03/17/24 18:28 <Daniel Huggins - Last Filed: 03/17/24 22:51> - Medical Decision Making I completed the quick note portion of this chart signed Karime Burns PA-C (Karime Burns) Was pt. sent in by a medical professional or institution (SHRAVAN Hoff, CARD ROOM MANAGER, urgent care, hospital, or usp...) When possible be specific @ -No Did you speak to anyone other than the patient for history (EMS, parent, family, police, friend...)? What history was obtained from this source @ -No Did you review nursing and triage notes (agree or disagree)? Why? @ -I reviewed and agree with nursing and triage notes Were old charts reviewed (outside hosp., previous admission, EMS record, old EKG, old radiological studies, urgent care reports/EKG's, usp records)? Report findings @ -No old charts were reviewed Differential Diagnosis (chest pain, altered mental status, abdominal pain women, abdominal pain men, vaginal bleeding, weakness, fever, dyspnea, syncope, headache, dizziness, GI bleed, back pain, seizure, CVA, palpatations, mental health, musculoskeletal)? @ -Kidney stone, kidney infection, muscle strain, muscle spasm, radiculopathy. This list is not all inclusive. EKG interpreted by me (3pts min.). @ -None done X-rays interpreted by me (1pt min.). @ -None done CT interpreted by me (1pt min.). @ -Lumbar spine CT reveals no obvious acute injury but patient does have bilateral neural foraminal stenosis as well as some spinal canal stenosis. No evidence of acute fracture. No evidence of acute intra-abdominal process. U/S interpreted by me (1pt. min.). @ -None done What testing was considered but not performed or refused? (CT, X-rays, U/S, labs)? Why? @ -None What meds were considered but not given or refused? Why? @ -None Did you discuss the management of the patient with other professionals (professionals i.e. , PA, CARD ROOM MANAGER, lab, RT, psych nurse, social services director, mechanical developer prover, teacher, intelligence officer basic, rifle case repairer)? Give summary @ -No Was smoking cessation discussed for >3mins.? @ -No Was critical care preformed (if so, how long)? @ -No Were there social determinants of health that impacted care today? How? (Homelessness, low income, unemployed, alcoholism, drug addiction, transportation, low edu. Level, literacy, decrease access to med. care, fpc, rehab)? @ -No Was there de-escalation of care discussed even if they declined (Discuss DNR or withdrawal of care, Hospice)? DNR status @ -No What co-morbidities impacted this encounter? (DM, HTN, Smoking, COPD, CAD, Cancer, CVA, ARF, Chemo, Hep., AIDS, mental health diagnosis, sleep apnea, morbid obesity)? @ -None Was patient admitted / discharged? Hospital course, mention meds given and route, prescriptions, significant lab abnormalities, going to OR and other pertinent info. @ -Patient presents with back pain. Workup started in triage. Patient originally seen as a quick note. Vital signs within acceptable limits. Patient will be administered IV Toradol, as well as a lidocaine patch. CT imaging of the spine as well as abdomen pelvis in addition to abdominal labs will be obtained. He was in agreement this plan. Labs unremarkable. Urine unremarkable. Imaging unremarkable for intra-abdomi nal process. Patient does have degenerative changes of the spine as well as some mild spinal stenosis and neural foraminal stenosis. I discussed results with the patient. Likely musculoskeletal pain considering workup. He expressed understanding. He will be given a dose of IV steroids prior to discharge and a prescription for lidocaine patches. Strict return precautions discussed. No concern for cauda equina syndrome at this time as he has no symptoms consistent with that. I will provide the patient with a prescription for lidocaine patch. I instructed the patient to follow up with their PCP in the next 1-3 days.. I explained that the patient should return to the emergency department if they experience any worsening symptoms. Strict return precautions were discussed with the patient. The patient expressed understanding of these instructions. I answered all questions that the patient had. The patient was discharged home in good condition with their prescriptions and follow up information. Undiagnosed new problem with uncertain prognosis? @ -No Drug Therapy requiring intensive monitoring for toxicity (Heparin, Nitro, Insulin, Cardizem)? @ -No Were any procedures done? @ -No Diagnosis/symptom? @ -Muscle strain, radiculopathy Acute, or Chronic, or Acute on Chronic? @ -Acute Uncomplicated (without systemic symptoms) or Complicated (systemic symptoms)? @ -Uncomplicated Side effects of treatment? @ -No Exacerbation, Progression, or Severe Exacerbation? @ -No Poses a threat to life or bodily function? How? (Chest pain, [place], [place], pneumonia, PE, COPD, DKA, ARF, appy, cholecystitis, CVA, Diverticulitis, Homicidal, Suicidal, threat to staff... and all critical care pts) @ -Unlikely (Daniel Huggins) - Lab Data Lab Results 03/17/24 03/17/24 03/17/24 Range/Units 18:28 18:28 18:28 WBC 9.4 (3.8-10.6) k/uL RBC 5.37 (4.30-5.90) m/uL Hgb 16.3 (13.0-17.5) gm/dL Hct 51.1 (39.0-53.0) % MCV 95.0 (80.0-100.0) fL MCH 30.3 (25.0-35.0) pg MCHC 31.9 (31.0-37.0) g/dL RDW 12.9 (11.5-15.5) % Plt Count 211 (150-450) k/uL MPV 8.2 Neutrophils % 72 % Lymphocytes % 20 % Monocytes % 5 % Eosinophils % 2 % Basophils % 0 % Neutrophils # 6.7 (1.3-7.7) k/uL Lymphocytes # 1.9 (1.0-4.8) k/uL Monocytes # 0.5 (0-1.0) k/uL Eosinophils # 0.2 (0-0.7) k/uL Basophils # 0.0 (0-0.2) k/uL Sodium 140 (137-145) mmol/L Potassium 4.9 (3.5-5.1) mmol/L Chloride 106 (98-107) mmol/L Carbon Dioxide 27 (22-30) mmol/L Anion Gap 7 mmol/L BUN 19 (9-20) mg/dL Creatinine 1.24 (0.66-1.25) mg/dL Est GFR (CKD-EPI)AfAm 75 (>60 ml/min/1.73 sqM) Est GFR (CKD-EPI)NonAf 65 (>60 ml/min/1.73 sqM) Glucose 103 H (74-99) mg/dL Calcium 9.4 (8.4-10.2) mg/dL Total Bilirubin 0.5 (0.2-1.3) mg/dL AST 21 (17-59) U/L ALT 16 (4-49) U/L Alkaline Phosphatase 43 (38-126) U/L Total Protein 7.8 (6.3-8.2) g/dL Albumin 4.6 (3.5-5.0) g/dL Urine Color Light Yellow Urine Appearance Clear (Clear) Urine pH 5.5 (5.0-8.0) Ur Specific [place] 1.024 (1.001-1.035) Urine Protein 1+ H (Negative) Urine Glucose (UA) Negative (Negative) Urine Ketones Negative (Negative) Urine Blood Small H (Negative) Urine Nitrite Negative (Negative) Urine Bilirubin Negative (Negative) Urine Urobilinogen <2.0 (<2.0) mg/dL Ur Leukocyte Esterase Negative (Negative) Urine RBC 1 (0-5) /hpf Urine WBC 1 (0-5) /hpf Ur Squamous Epith Cells <1 (0-4) /hpf Urine Mucus Rare H (None) /hpf Disposition <Karime Burns - Last Filed: 03/17/24 18:02> Is patient prescribed a controlled substance at d/c from ED?: No Time of Disposition: 20:25 <Daniel Huggins - Last Filed: 03/17/24 22:51> Clinical Impression: Muscle strain, Radiculopathy Disposition: HOME SELF-CARE Condition: Good Instructions (If sedation given, give patient instructions): Acute Low Back Pain (ED) Prescriptions: Lidocaine 5% Patch [Lidoderm 5% Patch] 1 patch TOPICAL DAILY PRN 14 Days #14 patch PRN Reason: Pain Referrals: None,Stated [Primary Care Provider] - 1-2 days Forms: [facility] PCPs
[2024-03-17 18:08] VITALS: RESP 18; TEMP 98.1
[2024-03-17] MEDS: KETOROLAC 15 MG/ML 1 ML VIAL IVP STA (18:39)
[2024-03-17] MEDS: LIDOCAINE 4% PATCH TOPICAL STA (18:41)
[2024-03-17 18:42] LABS: Appearance,Urine Clear (Clear); Basophils % (A) 0 %; Bilirubin,Urine Negative (Negative); Blood,Urine Small (Negative); Color,Urine Light Yellow; Eosinophils # (A) 0.2 k/uL (0-0.7); Eosinophils % (A) 2 %; Glucose,Urine (UA) Negative (Negative); HCT 51.1 % (39.0-53.0); HGB 16.3 gm/dL (13.0-17.5); Ketones,Urine Negative (Negative); Leukocyte Esterase,Urine Negative (Negative); Lymphocytes # (A) 1.9 k/uL (1.0-4.8); Lymphocytes % (A) 20 %; MCH 30.3 pg (25.0-35.0); MCHC 31.9 g/dL (31.0-37.0); Mean Platelet Volume 8.2; Monocytes # (A) 0.5 k/uL (0-1.0); Monocytes % (A) 5 %; Mucus,Urine Rare /hpf; Neutrophils # (A) 6.7 k/uL (1.3-7.7); Neutrophils % (A) 72 %; Nitrite,Urine Negative (Negative); PH, Urine 5.5 (5.0-8.0); Platelet Count 211 k/uL (150-450); Protein,Urine 1+ (Negative); RBC 5.37 m/uL (4.30-5.90); RBC,Urine 1 /hpf (0-5); RDW 12.9 % (11.5-15.5); Specific Gravity,Urine 1.024 (1.001-1.035); Squamous Epithelial Cell,Urine <1 /hpf (0-4); Urobilinogen,Urine <2.0 mg/dL (<2.0); WBC 9.4 k/uL (3.8-10.6); WBC,Urine 1 /hpf (0-5)
[2024-03-17 18:52] LABS: ALT 16 U/L (4-49); AST 21 U/L (17-59); African American GFR (CKD) 75 (>60 ml/min/1.73 sqM); Albumin 4.6 g/dL (3.5-5.0); Alkaline Phosphatase 43 U/L (38-126); Anion Gap 7 mmol/L; Blood Urea Nitrogen 19 mg/dL (9-20); Calcium 9.4 mg/dL (8.4-10.2); Carbon Dioxide 27 mmol/L (22-30); Chloride 106 mmol/L (98-107); Glucose 103 mg/dL (74-99); Non-African American GFR(CKD) 65 (>60 ml/min/1.73 sqM); Potassium 4.9 mmol/L (3.5-5.1); Sodium 140 mmol/L (137-145); Total Bilirubin 0.5 mg/dL (0.2-1.3); Total Protein 7.8 g/dL (6.3-8.2)
--- NOTE | 2024-03-17 20:05 | CT ---
EXAMINATION TYPE: CT abdomen pelvis wo con, CT lumbar spine wo con DATE OF EXAM: 03/17/2024 6:58 PM COMPARISON: None. CLINICAL INDICATION: Male, 58 years old with history of right flank pain; middle to low back pain TECHNIQUE: Axial CT abdomen pelvis wo con, CT lumbar spine wo con;Sagittal and coronal reformats wer e created on a separate workstation. Contrast used: mL of , (none if empty) Oral contrast used: without Oral Contrast (none if empty) CT DLP: 1465.4 mGycm, Automated exposure control for dose reduction was used. FINDINGS: LOWER CHEST: Unremarkable ABDOMEN LIVER: Unremarkable GALLBLADDER AND BILE DUCTS: Unremarkable. PANCREAS: Unremarkable. SPLEEN: Unremarkable. ADRENAL GLANDS: Unremarkable. KIDNEYS AND URETERS: No evidence of hydronephrosis or renal calculus. The ureters are unremarkable. Simple appearing right renal cortical cysts. PELVIS BLADDER: No evidence for wall thickening or mass given limitations of exam. REPRODUCTIVE: Unremarkable. ABDOMEN & PELVIS STOMACH AND BOWEL: No evidence of bowel obstruction. PERITONEUM/RETROPERITONEUM: No evidence of pneumoperitoneum or free fluid. VASCULATURE: Mild atherosclerotic calcifications are present throughout the abdominal aorta and its b ranches. No evidence of aortic aneurysm. MUSCULOSKELETAL: No evidence for acute fracture. Multilevel degeneration changes spine with joint spa ce tearing osteophyte formation. Thickening is noted at L4-L5. Grade 1 anterolisthesis of L3 on L4. T here is at least mild spinal canal stenosis at L4-L5 and moderate to severe L3-L4. LYMPH NODES: No gross evidence for lymphadenopathy. SOFT TISSUE/ABDOMINAL WALL: Unremarkable IMPRESSION: 1. No evidence for acute abdominal process. 2. No evidence for spinal fracture. 3. Grade 1 anterolisthesis of L3 and L4 with moderate spinal canal stenosis and moderate bilateral n eural foraminal stenosis. 4. L4-L5 severe right and moderate severe left neural foraminal stenosis. 5. Moderate multilevel degeneration changes of the spine. [facility], Workstation: [id number], 03/17/2024 8:02 PM
[2024-03-17] MEDS: methylPREDNISolone SOD SUCCI 40 MG/ML 1 ML VIAL IV STA (20:35)
[2024-03-17 20:42] VITALS: BP 134/93; PULSE 78
== END 2024-03-17 20:41 | disposition home or self-care (01) ==
LOC: EC 17:32
DX: S29.012A Strain of muscle and tendon of back wall of thorax, initial encounter (principal); M54.14 Radiculopathy, thoracic region; F17.200 Nicotine dependence, unspecified, uncomplicated; Z86.73 Personal history of transient ischemic attack (TIA), and cerebral infarction without residual deficits; X50.1XXA Overexertion from prolonged static or awkward postures, initial encounter
CPT/HCPCS: 36415; 80053; 85025; 81001; 72131; 74176; 99284; 96374; 96375; J1885; J2919

== ENCOUNTER 2024-04-10 21:06 | Emergency (ER) | payer MEDICARE, OTHER ==
[2024-04-10 21:10] VITALS: BP 125/83; PULSE 103; RESP 20; TEMP 98.3
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
[2024-04-10] MEDS: DIPH,PERTUS(ACELL)TETVAC-LF 0.5 ML VIAL IM ONE (21:45)
[2024-04-10] MEDS: TOPICAL SKIN ADHESIVE 1 EACH AMP TOPICAL ONE (21:48)
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
[2024-04-10] MEDS: ONDANSETRON ODT 4 MG TAB PO STA (22:49)
== END 2024-04-10 22:51 | disposition home or self-care (01) ==
LOC: EC 21:06
DX: S01.112A Laceration without foreign body of left eyelid and periocular area, initial encounter (principal); I11.0 Hypertensive heart disease with heart failure; I50.9 Heart failure, unspecified; F17.200 Nicotine dependence, unspecified, uncomplicated; Z88.0 Allergy status to penicillin; Z23 Encounter for immunization; Z79.01 Long term (current) use of anticoagulants; Y04.0XXA Assault by unarmed brawl or fight, initial encounter
CPT/HCPCS: 70450; 70486; 90471; 90715; 99284

== ENCOUNTER → 2024-08-05 | Outpatient (CLI) | payer MEDICARE, OTHER ==
--- NOTE | 2024-08-05 11:52 | US ---
EXAMINATION TYPE: US kidneys/renal and bladder DATE OF EXAM: 08/05/2024 COMPARISON: CT: 03/17/24 CLINICAL INDICATION: Male, 59 years old with history of N18.1 CHRONIC KIDNEY DISEASE, STAGE 1; CKD TECHNIQUE: Grayscale imaging of the bilateral kidneys and urinary bladder: FINDINGS: EXAM MEASUREMENTS: Right Kidney: 10.3 x 6.3 x 5.2 cm Left Kidney: 11.0 x 6.0 x 6.8 cm Right Kidney: cystic area seen sup pole measuring 2.5 x 3.8 x 2.0cm Left Kidney: No hydronephrosis or masses seen Bladder: echogenic nonvascular area seen right posterior bladder. Area seemed to become less noticeab le when rolled on LLD Bilateral Jets seen: No There is no evidence for hydronephrosis at this point in time. No nephrolithiasis is seen. Right re nal upper pole cyst measuring up to 3.8 cm. Corticomedullary differentiation is maintained bilaterall y. No solid renal masses are identified. There is an echogenic nonvascular air seen within the paraeducator ior right urinary bladder which is less notable on patient's rolled on the left lateral decubitus pos ition. The ureteral jets are not identified. IMPRESSION: 1. No hydronephrosis or nephrolithiasis. 2. Questionable nonvascular echogenic foci/debris within the urinary bladder. Correlate with urinalys is. Consider short-term follow-up ultrasound versus direct visualization versus CT. 3. Right renal simple cyst. [facility], , 08/05/2024 11:50 AM
== END | disposition home or self-care (01) ==
LOC: RADUSWWP 10:14
PROVIDERS: ATTEND Internal Medicine
DX: N18.1 Chronic kidney disease, stage 1 (principal); N28.1 Cyst of kidney, acquired
CPT/HCPCS: 76770

== ENCOUNTER → 2024-08-23 | Outpatient (CLI) | payer MEDICARE, OTHER ==
--- NOTE | 2024-08-23 14:10 | CT ---
EXAMINATION TYPE: CT urogram wo/w con CT DLP: 2634 mGycm, Automated exposure control for dose reduction was used. DATE OF EXAM: 08/23/2024 12:01 PM COMPARISON: Renal ultrasound 04/07/2025, CT abdomen and pelvis 03/17/2024 CLINICAL INDICATION:Male, 59 years old with history of N28.1 RENAL CYST; PHH, HX OF 1 RENAL STONE TECHNIQUE: Urogram of the abdomen and pelvis was performed before and after the administration of 100 cc of IV c ontrast Isovue 300 contrast. Delayed imaging was performed. Coronal and sagittal reformats were perfo rmed. One or more CT dose reduction strategies were utilized during this examination. 2D and 3D recon structions are performed to assist visualization of the urinary tract on a separate workstation. FINDINGS: GENITOURINARY: RIGHT KIDNEY AND URETER: No calculi. No hydronephrosis or hydroureter. Upper pole 4.0 cm thin-walled nonenhancing simple cyst. No follow-up recommended. No suspicious enhancing lesion. No urothelial les ions: no filling defect, dilation, stricture or wall thickening. LEFT KIDNEY AND URETER: No calculi. No hydronephrosis or hydroureter. No renal mass or other lesions. No urothelial lesions: no filling defect, dilation, stricture or wall thickening. URINARY BLADDER: Mildly distended. Normal, no calculi, mass or other lesions. REPRODUCTIVE: Unremarkable. ABDOMEN LIVER: Several subcentimeter hypoattenuating structures are demonstrated throughout the liver, which are too small to accurately characterize but statistically represent hepatic cysts.. GALLBLADDER AND BILE DUCTS: Unremarkable PANCREAS: Unremarkable. SPLEEN: Unremarkable. ADRENAL GLANDS: Unremarkable. STOMACH AND BOWEL: Unremarkable. No evidence of bowel obstruction. PERITONEUM: No evidence of pneumoperitoneum, free fluid, or adenopathy. VASCULATURE: Atherosclerotic calcifications are present throughout the abdominal aorta and its branch es. No abdominal aortic aneurysm. MUSCULOSKELETAL: No acute osseous abnormalities. Mild retrolisthesis of L1 on L2. Mild multilevel deg enerative disease. Degenerative changes of the bilateral SI joints with anterior bridging. SOFT TISSUE/ABDOMINAL WALL: Unremarkable. LOWER CHEST: Cardiomegaly. The visualized lung bases are clear.. IMPRESSION: 1. No evidence of urolithiasis or suspicious renal/urothelial neoplasm. 2. Right renal upper pole 4 cm simple cyst. No follow-up recommended. [facility], , 08/23/2024 2:07 PM
== END | disposition home or self-care (01) ==
LOC: RADCTMAIN 10:19
PROVIDERS: ATTEND Internal Medicine
DX: N28.1 Cyst of kidney, acquired (principal)
CPT/HCPCS: 74178; 74400; Q9967